=== PATIENT | male | born 1940 | race Caucasian/White ===

== ENCOUNTER → 2019-09-17 06:42 | Day surgery (SDC) | payer MEDICARE, OTHER ==
[~2019-09-17 06:42] MED LIST: Acetaminophen TAB* 325 MG ONE; Acetaminophen TAB* 325 MG PO ONE; Buffered Lidocaine 1% SYRIN* 1 ML/SYRINGE INTRADERM ONE; Bupivacaine 0.25% SDV PF* 10 ML VIAL INJ ONE; Clindamycin 900 MG/D5W BAG(*) 900 MG/50 ML BAG IVPB ONE; DiMENhydriNATE IV* 50 MG/ML VIAL IV PUSH PRN; KETAMINE HCL* 50 MG/ML 10 ML VIAL ONE; Lactated Ringers 1000 ML Bag* 1,000 ML IV SCH; Midazolam* 1 MG/ML 5 ML VIAL (5 MG) ONE; Naloxone* 0.4 MG/ML 1 ML VIAL IV PRN; PROCHLORPERAZINE INJ 5 MG/ML 2 ML VIAL IV PRN; Propofol* 10 MG/ML 20 ML BTL ONE; fentaNYL* 50 MCG/ML 2 ML VIAL (100 MCG VIAL) ONE; oxyCODONE/Acetamin 5/325 MG* TAB PO PRN
--- NOTE | 2019-09-17 10:14 | OP ---
DATE OF OPERATION: 09/17/19 - [facility] DATE OF : 44 SURGEON: Aubrey Damon MD OPERATIONS ASSOCIATE: None. PRE-OP DIAGNOSIS: Lymphoma. POST-OP DIAGNOSIS: Lymphoma. OPERATIVE PROCEDURE: Placement of PowerPort in the left chest through left subclavian approach. INDICATION FOR PROCEDURE: Requiring PowerPort for chemotherapy. Risks include , but not limited to, bleeding, infection, pneumothorax were explained to the patient, who seemed to understand and agreed to the procedure, and all questions were answered. DESCRIPTION OF PROCEDURE: The patient was taken to the operating room and placed supine. Preoperative antibiotics were given. Sedation was given by the anesthesiologist. Left chest was prepped and draped in a sterile fashion. Time -out was performed indicating correct patient and correct procedure. Using Seldinger technique, a wire was passed into the left subclavian vein. The tract was dilated and a split sheath was placed over the wire. The wire was removed. The catheter was placed through the split sheath. The split sheath was removed and the catheter was tunneled under the skin to a subcutaneous pocket made on the chest and attached to the PowerPort. It aspirated blood easily and flushed nicely. Fluoroscopy revealed good positioning of the catheter in the superior vena cava. The pocket was closed in layers using 3-0 Monocryl. Glue was applied to the skin. EBL was minimal. The patient was taken to Recovery in stable condition. [id number] #: [id number] [facility]
[2019-09-17 10:20] VITALS: BP 156/86
== END | disposition home or self-care (01) ==
LOC: OR 06:42
PROVIDERS: ATTEND Surgery
DX: C85.13 Unspecified B-cell lymphoma, intra-abdominal lymph nodes (principal); E11.9 Type 2 diabetes mellitus without complications; I10 Essential (primary) hypertension; Z79.4 Long term (current) use of insulin
CPT/HCPCS: 71045; 76000; A9270-GY; C1788; J1642; J2250; J2704; J3010; J3490